=== PATIENT | female | born 1965 | race Caucasian/White ===

== ENCOUNTER → 2024-05-20 10:29 | Outpatient (REF) | payer BC, SELFPAY | LOC: HWRAD 10:29 | PROVIDERS: ATTENDING PHYSICIAN Family Medicine | DX: R91.1 Solitary pulmonary nodule (principal) | CPT/HCPCS: 71250 ==

== ENCOUNTER → 2024-08-10 14:48 | Outpatient (REF) | payer BC, SELFPAY | LOC: HWRAD 14:48 | PROVIDERS: ATTENDING PHYSICIAN Family Medicine | DX: R05.3 Chronic cough (principal) | CPT/HCPCS: 71046 ==